=== PATIENT | male | born 1935 | race Caucasian/White ===

== ENCOUNTER 2017-03-13 09:37 | Day surgery (SDC) | payer MEDICARE ==
[2017-03-13] VITALS (8 sets, daily range): BP systolic 116–139; BP diastolic 51–80; PULSE 71–82; RESP 12–18; O2SAT 93–97
[~2017-03-13] VITALS: Ht 175.3 cm; Wt 86.6 kg
--- NOTE | 2017-03-13 07:58 | PCM.HPANE ---
Patient Data Surgeon Admitting Provider: Attending Provider:Marisol Campos MD Primary Care Physician:Beatris Alves MD Other Provider:Solomon Harvey Anesthesia Reason for Visit Left Inguinal Hernia Ht/WT & BMI Height (Feet): 5 Height (Inches): 9 Weight (Kilograms): 86.0 Body Mass Index 28.00 Allergies Uncoded Allergies: CANTALOPE (Adverse Reaction, Severe, Sever Nausea and vomiting with unstable gait, 03/12/17) LENTIL'S (Adverse Reaction, Severe, Causes Gout flair up, 03/12/17) Past Anesthesia History Anesthesia History: Denies:: Abnormal Airway, Anesthesia Reactions, Difficult Intubation, Fam Anesthesia Reaction, Fam Malignant Hypertherm, Malignant Hyperthermia Diabetes History Hx Diabetes?: Yes Type of Diabetes: Type II Glycemic Control: Diet Controlled MRSA MRSA: No Medications Blood Thinner: Aspirin Hypertension Medication: No Home Meds Incl Beta Harley: No Reported Medications Psyllium Husk (Fiber)0.4 Gram Capsule0.4 Gm PO 03/12/17 Indomethacin (Indocin)50 Mg Supp.rect50 Mg PO PRN For Pain 03/12/17 Solifenacin Succinate (Vesicare)5 Mg Fbltxr44 Mg PO DAILY #60 TABLET 03/08/16 Tamsulosin (Flomax)0.4 Mg Capsule0.4 Mg PO DAILY Ref 0 03/08/16 Multivitamin (Multi Vitamin Daily)1 Each Tablet1 Each PO DAILY 30 Days Ref 0 03/08/16 Discontinued Reported Medications Psyllium Husk 1,000 Gm Powder1,000 Gm MC DAILY 03/08/16 Aspirin 81 Mg Hsauds85 Mg PO DAILY Ref 0 03/08/16 History History of ENT Problems?: No HEENT History: Positive for:: Cataracts Hearing Problem (does not wear all the time) Denies:: Abnormal Airway Difficult Intubation Glaucoma Denture Type: None Teeth Condition: Within Normal Limits Hx of Heart Problems?: Yes Cardiovascular History: Denies:: AICD Abdominal Aortic Aneurism Atrial Fibrillation Cardiac Surgery Chest Pain Congestive Heart Failure Coronary Artery Disease Edema Heart Murmur Hypertension Irregular Heartbeat Pacemaker Peripheral Vascular Rheumatic Fever Thrombophlebitis Valvular Heart Disease Hx of Respiratory Problem?: No Respiratory History: Denies:: Asthma COPD Chest Surgery Cough Dyspnea Emphysema Hemoptysis Pneumonia Pulmonary Embolism Tuberculosis Use of C-PAP Machine Hx Neurologic Problems?: No Neurological History: Positive for:: Dizziness (ED VISIT 10/2014 FOR VASO- VAGAL EPISODE W/ FALL & MINOR INJURIES) Hx of GI Problems?: Yes Hx of Problems?: Yes Genitourinary History: Denies:: HX of Hemodialysis Kidney Stones HX of Peritoneal Dialysis: No Male Hx: Positive for:: Prostate Problems (BPH) Denies:: Scrotal Mass Testicular Surgery Skin History: Denies:: History Skin Disorders? Pressure Ulcers Hx Musculoskeletal Problems?: Yes Musculoskeletal History: Positive for:: Joint Replacement (S/P LT TKA) Musculoskeletal Trauma (S/P LT FOOT RPR FOLLOWING TRAUMA - 1999) Denies:: Back Injury Degenerative Joint Fibromyalgia Myasthenia Gravis Osteoarthritis Rheumatoid Arthritis Systemic Lupus Hx of Psycho/Social Problems?: No Hx Surgeries?: Yes (EXC CA VOCAL CHORDS, LT TKA, LT FOOT RPR) Hx Any Other Health Problems?: Yes Other History: Positive for:: Cancer (LESION-VOCAL CHORDS) Hospitalization Denies:: Endocrine Disease Thyroid Disease History Blood Transfusions: Positive for:: Accept Blood Products? Denies:: Blood Transfusions Hx Diabetes: Yes Hx Alcohol Use: Yes ("SOCIAL")Hx Substance Use: No Smoking Status: Former Smoker Have You Smoked inLast 12 mo: No Stop/Bang Treated for Sleep Apnea?: No Do You Have a CPAP Machine?: No S-Snoring: Do You Snore Loudly: No T-Tired: feel tired, fatigued: No O-Obsered: Observed not breath: No P-Blood Pressure: treated: No B- Body Mass Index > 35 kg/m2: No A- Age over 50: Yes N- Neck Large Circumference: No G- Gender Male: No YIMI Total Score: 1 YIMI Risk Assessment: Low Risk, <3 Yes Risk Assessment Category Category 1A: Patient has history of documented sleep apnea, and HAS NOT received any narcotic, sedative or anesthesia administration during this stay. Category 1B: Patient has history of documented sleep apnea, and HAS received any narcotic , sedative or anesthesia administration during this stay Category 2: Patient has SUSPECTED Obstructive Sleep Apnea, and HAS received any narcotic , sedative or anesthesia administration during this stay. Category 3: Patient has SUSPECTED Obstructive Sleep Apnea and HAS NOT received narcotic, sedative or anesthesia administration during this stay. Category 4: Outpatient in Procedural Areas with known sleep apnea or who screen positive for High Risk via the STOP/BANG questionnaire. Exam Exam General Appearance: Alert, Oriented X3, Cooperative, No Acute Distress HEENT/AIRWAY: MP 2 Lungs: Clear to Auscultation, Normal Air Movement Heart: Exam Unremarkable, Regular Rate/Rhythm, No Murmurs/Rubs/Gallops Plan Impression Patient chart reviewed, patient interviewed and anesthestic plan with risks, benefits, and alternatives discussed, and informed consent obtained. ASA Physical Status: ASA2 Mod Systemic Disease Anesthetic Plan: GA Bene/Risks/Altern/Consents: Yes HP Complete Prior to Induction: Yes Elier Carrillo MD Mar 13, 2017 07:58
[~2017-03-13 09:37] MED LIST: CeFAZolin Inj 2 GM in IV Premix 1 EACH IV ONE; Dexamethasone 4 mg/mL Inj IVPUSH PRN; EPHEDrine Sulfate 50 mg/mL Inj IVPUSH PRN; HYDROmorphone 1 mg/mL Inj IVPUSH PRN; INDO50SU2 PO; Lactated Ringer's 1,000 ML IV SCH; Lactated Ringer's 500 ML IV PRN; MULT-1018 PO; MetoCLOpramide 5 mg/mL 2 mL Inj IVPUSH PRN; Ondansetron 2 mg/mL 2 mL Inj IVPUSH PRN; PSYL0.5216 PO; Phenylephrine 10,000 mCg/mL Inj IVPUSH PRN; SOLI5TAB2 PO; TAMS0.4C98 PO; fentaNYL-PF 50 mCg/mL 2 mL Inj IVPUSH PRN
[2017-03-13] MEDS ORDERED: Ketamine 10 mg/mL 20 mL Inj ONE (09:38)
[2017-03-13] MEDS ORDERED: Ondansetron 2 mg/mL 2 mL Inj ONE (09:38)
[2017-03-13] MEDS ORDERED: fentaNYL-PF 50 mCg/mL 2 mL Inj ONE (09:38)
[2017-03-13] MEDS ORDERED: Propofol 10,000 mCg/mL 20 mL Inj ONE (09:38)
[2017-03-13] MEDS ORDERED: Atropine 0.4 mg/mL Inj ONE (09:38)
[2017-03-13] MEDS: Lactated Ringer's 1,000 ML IV SCH ×2 (09:52→13:06)
[2017-03-13] MEDS ORDERED: Bupivacaine-MPF 0.5% W/EPI 30 mL Inj INFILTRATE ONE (13:54)
[2017-03-13] MEDS ORDERED: Lactated Ringer's 1,000 ML IV ONE ×2 (13:57→15:40)
[2017-03-13 15:41] LABS: APPEARANCE,URINE HAZY (CLEAR,HAZY); COLOR,URINE YELLOW (YELLOW); PH,URINE 6.5 (5.0-8.0)
[2017-03-13 15:42] LABS: OCCULT BLOOD,URINE NEGATIVE (NEGATIVE); UROBILINOGEN,URINE NORMAL (NORMAL)
--- NOTE | 2017-03-13 16:14 | PCM.SURGOP ---
Surgical Operative Report Date of Service: Mar 13, 2017 Pre Operative Diagnosis Left inguinal hernia Post Operative Diagnosis Indirect left internal hernia Procedure: Laparoscopic converted to open repair of incarcerated indirect left internal hernia Surgeon and Lawn Mower Mechanic: Surgeon: Marisol Campos MD Assistants: Gonzalo Soto MD R3; Marissa Valencia MS3 Indication for Procedure This is an 81-year-old man who presented with a painful groin bulge. He is an avid walker and hiker, and it was impairing his ability to participate in these activities. Therefore he desired repair. Findings: 1. Totally extraperitoneal access was attempted and dissection was performed for 1 hour. The preperitoneal plane was very difficult to dissect, and visualization of the preperitoneal space was impaired significantly by the patient's body habitus. Therefore, the decision was made to convert to open. 2. Indirect inguinal hernia with incarcerated intra-abdominal fat. Procedure Details The patient was brought to the operating room and placed in supine position. General anesthesia was induced. A warming blanket and SCDs were placed. A Pascual catheter was placed. Antibiotics were infused. Both arms were tucked. The operative field was prepped and draped in a sterile fashion. A pause was performed to confirm the correct patient, procedure, site, and side. A transverse infraumbilical incision was made and the anterior rectus fascia was incised. An 11 mm port was placed with a blunt tip posterior to the rectus abdominis and preperitoneal insufflation commenced. A 0 degree camera was used to develop the preperitoneal space. It was extremely difficult to insufflate and dissect in this plane. Two additional 5 mm ports were then placed in the midline below the umbilicus. The preperitoneal space was then developed, however, progress was extremely slow and visualization was poor due to the angle required of the camera (both a 30 and 0 camera were used) against the patient's body habitus. Therefore, after 1 hour of difficult dissection, the decision was made to proceed with conversion to an open procedure. An 0 PDS stitch was placed in the anterior rectus fascia and this was closed. Ports were withdrawn. An oblique incision was made between the ASIS and pubic tubercle. Subcutaneous tissue was dissected with electrocautery. The external oblique was incised sharply and divided with Metzenbaum scissors. The spermatic cord was identified, dissected free of surrounding tissues, and surrounded with a Jessica drain for retraction. The ilioinguinal nerve was identified and divided. The cremasteric muscles along the spermatic cord were spread and divided to expose the indirect hernia sac, which was large and thickened. It was opened and then dissected off of the spermatic cord. Incarcerated abdominal fat was present. It had to be dissected off of the inner aspect of the hernia sac in order to be reduced.. Care was taken to preserve the spermatic cord contents, including the vas deferens and visible vasculature. It was ligated high using a 3-0 PDS, amputated, discarded, and the stump was reduced after hemostasis was confirmed. Attention was then turned to mesh placement. A piece of 3 inch by 6 inch ultralight Bard Softmesh was fashioned to size with care taken to provide adequate coverage of the floor. Interrupted 3-0 PDS stitches were then used to suture it into place. The first stitch was placed in the tissue overlying the pubic tubercle with greater than 1 cm of overlap to prevent recurrence. Additional stitches were then used at 1.5 cm intervals to suture the lateral aspect of the mesh to the shelving edge of the inguinal ligament. Several stitches were then placed medially to affix the mesh to the conjoined tendon. At the end of the case, the floor was covered with mesh. Two tails were fashioned to recreate the internal ring. These were sutured to each other and to the shelving edge of the inguinal ligament. The new ring was large enough to pass the cord and the tip of the surgeon's fifth digit. The Jessica drain was removed and the external oblique was then closed with a running 3-0 Vicryl stitch. Subcutaneous tissue was closed with 3-0 Vicryl stitches. The skin was closed with a running 4-0 Monocryl stitch. Marcaine 0.5% with epinephrine was infused in the skin for postoperative analgesia. A sterile dressing was placed. The patient was awakened from general anesthesia and taken to postoperative care unit in good condition. Complications There were no periprocedural complications identified. Surgical Specimen Removed: No Specimen sent to Pathology: No Anesthetic Plan: GA Grafts, Implants: None Output, Estimated Blood Loss: 10 (ml) Blood Administration during lovelace: No Marisol Campos MD Mar 13, 2017 16:14
[2017-03-13] MEDS ORDERED: oxyCODONE-Acetamin 5-325 mg Tablet PO PRN (17:05)
--- NOTE | 2017-03-13 17:07 | PCM.DISURG ---
Surgical Discharge Instruction Date of Service Mar 13, 2017 Dates of Hospitalization Date of Hospital Admission Providers Admitting Physician: Primary Care Physician: Beatris Alves MD Attending Physician: Marisol Campos MD Discharge Diagnosis Post Operative diagnosis Indirect left internal hernia Diet Discharge Diet: No restrictions Activity Discharge Activity-General: Activity as pain allows, No lifting >15 pounds for 2 weeks, No driving while taking narcotic Dressing and Incisional Care Dressing Care: Allow Steri Stripes to fall off, Remove outer dressing after 24 hrs Hygiene: No showering, May shower after (24 hours), DO NOT soak incision under water, NO bathtub, hot tub or whirlpool Additional Instructions Discharge Instructions Please follow up in the surgery clinic in 2-3 weeks. Call at any time with questions or concerns. Follow Up Plan Call your provider for: Fever, Chills, Increasing abdominal pain, Nausea, Vomiting, Wound redness, Increasing wound pain, Discharge @ incision, pus discharge Ernie Soto MD Mar 13, 2017 17:07
--- NOTE | 2017-03-17 07:06 | PCM.ANEP1 ---
Post Anesthesia PACU Phase 1 Assessment Anesthetic Administered: GA Level of Alertness: Awake, talking ZEPEDA's with Equal Strength: No Pain: No Nausea or Vomiting: No CV Function & Hydration Stable: Yes Airway Device: Oralpharangeal Airway Oxygen Delivery: Simple Mask Lungs: Clear to Auscultation, Normal Air Movement Dermatome Level: Full Sensation PACU Phase 2 Assessment Complications: No Follow up Care: No Patient Instructions Provided: N/A ([id number]) Elier Carrillo MD Mar 17, 2017 07:06
== END 2017-03-13 23:59 | disposition home or self-care (01) ==
LOC: SAS 09:37
PROVIDERS: ATTEND Surgery
DX: K40.30 Unilateral inguinal hernia, with obstruction, without gangrene, not specified as recurrent (principal); E11.9 Type 2 diabetes mellitus without complications; Z79.899 Other long term (current) drug therapy; Z87.891 Personal history of nicotine dependence
CPT/HCPCS: 49505; 81000; C1781; J0461; J0690; J2250; J2405; J3010; J7120